=== PATIENT | female | born 1990 | race Caucasian/White ===

== ENCOUNTER 2022-04-09 16:01 | Emergency (ER) | payer SELFPAY ==
--- NOTE | ~2022-04-09 | XR_ITS ---
EXAM: XR toe 1st LT min 2V DATE: 04/09/2022 16:46 HISTORY: FELL OFF PORCH DOWN 2-STEPS 04/04/22. PAIN. . COMPARISON: None available. FINDINGS: Normal mineralization. No fracture or dislocation. No lytic or blastic lesion. Joint space s are maintained. No erosion or periosteal change. Soft tissues within normal limits. IMPRESSION: No acute osseous finding in the left first toe. Reviewed, dictated and finalized at location K.
--- NOTE | ~2022-04-09 | XR_ITS ---
EXAM: XR ankle RT min 3V DATE: 04/09/2022 16:47 HISTORY: FELL OFF PORCH DOWN 2-STEPS 04/04/22. LAT PAIN. . COMPARISON: None available. FINDINGS: Normal mineralization. No fracture or dislocation. No lytic or blastic lesion. Scattered m ild degenerative changes. No erosion or periosteal change. Lateral soft tissue swelling. IMPRESSION: No acute osseous finding in the right ankle. Reviewed, dictated and finalized at location K.
[2022-04-09 16:12] VITALS: BP 145/84; PULSE 97; RESP 20; TEMP 37.2; O2SAT 98
--- NOTE | 2022-04-09 17:07 | ED.LOWEXIN ---
HPI - Extremity Injury (Lower) General Chief Complaint: Extremity Injury, Lower Stated Complaint: Right ankle injury. Left toe injury Time Seen by Provider: 04/09/22 16:50 Source: patient, RN notes reviewed and old records reviewed Mode of arrival: wheelchair Limitations: no limitations History of Present Illness HPI Narrative: 32 year old [facility] accompanied by mother with complaints of injury to her left great toe and right ankle on the 04 of April when she fell off of her porch at 2300 when she took her dog out. Patient states that she was originally seen in the emergency room of local hospital and x-rayed but had so much swelling she states they stated that there might be fracture not showing up. She continues to have a lot of pain to her right ankle laterally with swelling and some swelling to her dorsal foot. She continues to be unable to put much weight on her right ankle and has boot also she is to wear,states mainly has been laying around with foot and ankle elevated with ice to ankle. She has abrasion to left distal great toe and lateral nail bed concerned it may be infected, she has been cleansing with peroxide and putting Neosporin ointment on toe, no acute redness noted or drainage, remains painful. She has been alternating Tylenol and Ibuprofen for pain, states pain remains at 5/10. MD complaint: ankle injury (lateral right ankle, left great toe) Onset (ago): day(s) (5) Severity scale (1-10): 5 Treatments prior to arrival: cold therapy, NSAIDS and other (Tylenol, was prescribed some Tramadol also) Related Data Home Medications Medication Instructions Recorded Confirmed tramadol 50 mg tablet 50 mg DIRECTED 04/09/22 04/09/22 venlafaxine 150 mg 150 mg PO QAM 04/09/22 04/09/22 capsule,extended release 24 hr (Effexor XR) Allergies Allergy/AdvReac Type Severity Reaction Status Date / Time No Known Allergies Allergy Verified 04/09/22 16:28 Review of Systems Review of Systems: CONSTITUTIONAL:Denies fever, chills, or sweats. EYES: Denies visual changes, redness, or discharge. ENT: Denies rhinorrhea, congestion, sore throat, no otalgia. CARDIOVASCULAR: Denies chest pain, palpitations, or edema. RESPIRATORY: Denies cough or dyspnea. GASTROINTESTINAL: Denies abdominal pain, nausea, vomiting,or diarrhea. GENITOURINARY: Denies dysuria or hematuria. SKIN: Denies rash or itching. abrasions to left great toe MUSCULOSKELETAL: Denies back pain, positive for right ankle pain and swelling, left toe pain, or myalgia. NEUROLOGIC: Denies headache, numbness, or weakness. PSYCHIATRIC: Positive for history of anxiety or depression. All systems reviewed & are unremarkable except as noted in HPI and below PMFSH Past Medical History Medical History (Updated 04/11/22 @ 21:25 by Ashlyn Hernandez NP) Hypothyroidism Morbid obesity with BMI of 50.0-59.9, adult Surgical History Surgical History (Updated 04/11/22 @ 21:29 by Ashlyn Hernandez NP) History of cholecystectomy Social History Social History (Updated 04/11/22 @ 21:28 by Ashlyn Hernandez NP) Smoking status: Never smoker Alcohol intake: current Alcohol use details: social Substance use: never Living arrangements: with family Gender identity (if verbalized by the patient): Female Comments At time of signature agree with nursing documentation of past medical, surgical, social and family history. There is no relevant family history pertinent to presnting complaint. Exam Narrative: GENERAL: Well-appearing, well-nourished, morbidly obese and in no acute distress. HEAD: Normocephalic, atraumatic. EYES: PERRLA and EOMI. ENT: Nares clear, no rhinorrhea or epistaxis. Mucous membranes moist.TM's normal with good light reflex, throat pink with no lesions or exudates or tonsil enlargement NECK: Supple.no lymphadenopathy CHEST: Clear to auscultation. No respiratory distress.SAO2 98% on room air, no tachypnea. HEART: Re
== END 2022-04-09 17:34 | disposition home or self-care (01) ==
PROVIDERS: Emergency Provider Registered Nurse
DX: S93.401A Sprain of unspecified ligament of right ankle, initial encounter (principal); W17.89XA Other fall from one level to another, initial encounter; S90.412A Abrasion, left great toe, initial encounter; E03.9 Hypothyroidism, unspecified; E66.01 Morbid (severe) obesity due to excess calories; Z68.43 Body mass index [BMI] 50.0-59.9, adult
CPT/HCPCS: 73610; 73660; 99213; G0463